=== PATIENT | male | born 1945 | race Caucasian/White ===

== ENCOUNTER 2017-12-13 11:04 | Emergency (ER) | payer MEDICARE, BC ==
[2017-12-13] MEDS ORDERED: Balanced Salt Solution Ophth Irrig 30 ML Bottle EYELF ONE (11:08)
[2017-12-13] MEDS ORDERED: Tetracaine HCl/PF 0.5% 4 ML Bottle EYELF ONE (11:08)
--- NOTE | 2017-12-13 11:54 | EDM.PDOC ---
ED HPI GENERAL MEDICAL PROBLEM - General Chief Complaint: Eye Problems Stated Complaint: Something in my left eye Time Seen by Provider: 12/13/17 11:24 Source of Information: Reports: Patient History Limitations: Reports: No Limitations - History of Present Illness INITIAL COMMENTS - FREE TEXT/NARRATIVE: Patient was working with metal yesterday, while wearing protective eye gear. Noticed increased redness and irritation involving left eye starting in afternoon. Has not improved overnight. No vision changes. No pain. No photophobia. He recalls wiping eye with a rag yesterday when symptoms first began. No other complaints. Onset: Gradual - Related Data Allergies Allergy/AdvReac Type Severity Reaction Status Date / Time No Known Allergies Allergy Verified 12/13/17 11:09 Home Meds: Home Meds Erythromycin Base [Erythromycin 0.5% Ophth Oint] 1 applic OP Q4H #1 tube [Rx] Past Medical History Cardiovascular History: Reports: High Cholesterol, Hypertension Social & Family History - Tobacco Use Smoking Status *Q: Current Status Unknown Packs/Tins Daily: 1 ED ROS GENERAL - Review of Systems Review Of Systems: ROS reveals no pertinent complaints other than HPI. ED EXAM GENERAL W FULL EYE - Physical Exam Exam: See Below Exam Limited By: No Limitations General Appearance: Alert, WD/WN, No Apparent Distress Eye Exam: Left Eye: Conjunctival Injection, Corneal Abrasion (increased uptake of dye small areas at 9 oclock and 2 oclock periphery of iris. ), Other (no linear abrasions noted that would indicate fb imbedded in upper lid. No FB identified on exam. ), Bilateral Eye: EOMI, PERRL Eyelids: Left: Lid Everted for Exam, Bilateral: Normal Appearance Conjunctiva & Sclera: Right: Normal Appearance, Left: Injected Cornea Exam: Left: Corneal Abrasion, Examined with Flourescein Extraocular Movements: Bilateral: Intact Pupils: Normal Accommodation Pupillary Size: Bilateral: 5 mm Pupillary Reaction: Bilateral: Brisk Anterior Chamber: Left: Normal Appearance Ears: Normal External Exam Nose: Normal Inspection Throat/Mouth: Normal Lips, Normal Voice, No Airway Compromise Head: Atraumatic, Normocephalic Neck: Supple, Non-Tender Respiratory/Chest: No Respiratory Distress Neurological: Alert, Oriented, Normal Cognition, Normal Gait Psychiatric: Normal Affect, Normal Mood Skin Exam: Warm, Dry, Intact, Normal Color Course - Vital Signs Last Recorded V/S: Last Vital Signs Temp 36.8 C 12/13/17 11:05 Pulse 92 12/13/17 11:05 Resp 16 12/13/17 11:05 BP 137/75 12/13/17 11:05 Pulse Ox 94 L 12/13/17 11:05 - Orders/Labs/Meds Meds: Medications Discontinued Medications Generic Name Dose Route Start Last Admin Trade Name Riccoq PRN Reason Stop Dose Admin Balanced Salt Solution 1 ml 12/13/17 11:08 12/13/17 11:45 Eye Stream Eye Rinse EYELF 12/13/17 11:09 30 ml ONETIME ONE Administration Tetracaine HCl 1 ml 12/13/17 11:08 12/13/17 11:45 Tetracaine 0.5% Steri-Unit Kandace EYELF 12/13/17 11:09 2 drop ASDIRECTED ONE Administration - Re-Assessments/Exams Free Text/Narrative Re-Assessment/Exam: 12/13/17 14:34 Patient appears to have two small abrasions on left cornea. No FB located/ identified during exam. Plan at this time is to treat with Emycin Opth ointment for 5 days. If no improvement is noted within the next 24-48 hours patient is asked to return to the ER over the weekend for re-examination. He should return earlier if symptoms worsen. Otherwise should follow up as needed either at ER or with primary eye provider. Departure - Departure Time of Disposition: 11:50 Disposition: Home, Self-Care 01 Condition: Good Clinical Impression: Corneal abrasion, left Qualifiers: Encounter type: initial encounter Qualified Code(s): S05.02XA - Injury of conjunctiva and corneal abrasion without foreign body, left eye, initial encounter - Discharge Information *PRESCRIPTION DRUG MONITORING PROGRAM REVIEWED*: Not Applicable *COPY OF PRESCRIPTION DRUG MONITORING REPORT IN PATIENT CARA: Not Applicable Prescriptions: Erythromycin Base [Erythromycin 0.5% Ophth Oint] 1 applic OP Q4H #1 tube Instructions: Corneal Abrasion, [id number] Referrals: PCP,Not In Area [Primary Care Provider] - Forms: ED Department Discharge Additional Instructions: Apply ointment in left eye every 4 hours. Protect eye from wind/new exposures for next 24-48 hours. Don't rub eye. If it is simple corneal abrasion, things should improve within 1-2 days. If symptoms worsen, or if you note worsening vision, follow up at ER over the weekend for recheck since your regular eye provider will not be open.
== END 2017-12-13 12:00 | disposition home or self-care (01) ==
LOC: LL.ED 11:04
DX: S05.02XA Injury of conjunctiva and corneal abrasion without foreign body, left eye, initial encounter (principal); F17.210 Nicotine dependence, cigarettes, uncomplicated; I10 Essential (primary) hypertension; X58.XXXA Exposure to other specified factors, initial encounter
CPT/HCPCS: 99283; A9270-GY